=== PATIENT | female | born 1950 | race Two or more races ===

== ENCOUNTER 2017-09-17 15:29 | Outpatient (CLI) | payer OTHER | END 2017-09-17 15:35 | disposition home or self-care (01) | LOC: MAMO-SONO 15:29 | DX: Z12.31 Encounter for screening mammogram for malignant neoplasm of breast (principal); Z87.898 Personal history of other specified conditions; N60.11 Diffuse cystic mastopathy of right breast ==

== ENCOUNTER 2017-09-22 10:53 | Outpatient (CLI) | payer OTHER | END 2017-09-22 11:00 | disposition home or self-care (01) | LOC: NUCLEAR 10:53 | DX: M81.0 Age-related osteoporosis without current pathological fracture (principal) ==

== ENCOUNTER 2020-12-19 13:17 | Outpatient (CLI) | payer OTHER ==
[~2020-12-19 13:17] MED LIST: ATORVASTATIN CA20 MG PO; CHLORDIAZEPOXI1 EACH PO; KEFLEX500 MG; SYNTHROID50 MCG PO
== END 2020-12-19 14:41 | disposition home or self-care (01) ==
LOC: MAMO-SONO 13:17
PROVIDERS: ATTEND General Practice
DX: Z12.2 Encounter for screening for malignant neoplasm of respiratory organs (principal); N60.11 Diffuse cystic mastopathy of right breast; N60.12 Diffuse cystic mastopathy of left breast; Z12.31 Encounter for screening mammogram for malignant neoplasm of breast

== ENCOUNTER 2021-01-02 12:41 | Outpatient (CLI) | payer OTHER | END 2021-01-02 12:42 | disposition home or self-care (01) | LOC: NUCLEAR 12:41 | DX: M81.0 Age-related osteoporosis without current pathological fracture (principal) ==

== ENCOUNTER 2021-11-12 08:12 | Outpatient (CLI) | payer OTHER | END 2021-11-12 08:23 | disposition home or self-care (01) | LOC: TOM 08:12 | DX: K92.1 Melena (principal) ==